=== PATIENT | female | born 1965 | race Native Hawaiian/Other Pacific Islander ===

== ENCOUNTER → 2016-12-24 | Outpatient (CLI) | payer OTHER | END | disposition home or self-care (01) | LOC: LAB.O 12:48 | PROVIDERS: ATTEND Surgery | DX: E34.9 Endocrine disorder, unspecified (principal); R53.83 Other fatigue; G47.00 Insomnia, unspecified; M25.50 Pain in unspecified joint ==

== ENCOUNTER 2017-02-25 21:49 | Emergency (ER) | payer OTHER ==
[2017-02-25 22:12] VITALS: TEMP 98.6
[2017-02-25] MEDS ORDERED: LIDOCAINE 1% W/ EPINEPHRINE 20 ML VIAL INJ ONE (22:16)
[2017-02-25] MEDS ORDERED: CHLORHEXIDINE GLUCONATE 4 % 15 ML UD TOP ONE (22:18)
[2017-02-25] MEDS ORDERED: IODOFORM 1/4 INCH 1 EA BTTL TOP ONE (22:19)
[2017-02-25] MEDS ORDERED: ONDANSETRON ODT 8 MG TAB ONE (22:31)
[2017-02-25] MEDS ORDERED: ONDANSETRON ODT 8 MG TAB SL ONE (22:39)
--- NOTE | 2017-02-25 23:03 | ED.PDOC ---
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 She put the kitten in a box away from all the other animals after she was bitten. The kitten has not had any shots yet as it is only 5 weeks old. Additionally, Patient has had an abscess under her right breast for at least 2 days. She has been taking some Bactrim DS she had left over from previously. It is becoming extremely painful. Timing/Duration: just prior to arrival, other - Abscess for at least 2 days Severity: moderate, severe Location: hands Improving Factors: nothing Worsening Factors: other - pressure Associated Symptoms: other - nausea, anxiety Allergies/Adverse Reactions: Allergies Codeine Allergy (Mild, Verified 02/25/17 22:12) Itching Naproxen Allergy (Mild, Verified 02/25/17 22:12) Penicillins Allergy (Mild, Verified 02/25/17 22:12) Tetanus Toxoid Allergy (Mild, Verified 02/25/17 22:12) Tramadol [From Ultram] Allergy (Mild, Verified 02/25/17 22:12) itching Home Medications: Ambulatory Orders Metoprolol Succinate [Metoprolol Succinate ER] 50 mg PO DAILY 03/17/15 Azithromycin [Zithromax Z-Star] 1 ea PO DAILY #1 pack 10/09/16 Levalbuterol Tartrate [Xopenex Hfa] 45 mcg INH DAILY PRN 10/09/16 Mometasone Furoate (Nasal) [Nasonex] 50 mcg NA DAILY #1 ml 10/09/16 Omeprazole-Sodium Bicarbonate [Zegerid] 1 cap PO DAILY 10/09/16 Trazodone HCl 100 mg PO BEDTIME 10/09/16 Doxycycline Hyclate 100 mg PO BID #14 cap 02/25/17 Review of Systems - Review of Systems Constitutional: States: no symptoms reported. 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 Hx Congestive Heart Failure: No Hx Pacemaker: No Hx Hypertension: No Hx Thyroid Disease: No Hx Diabetes: No Hx Gastroesophageal Reflux: No Hx Renal Disease: No Hx Cancer: No Hx of HIV: No Hx Hepatitis C: No Hx MRSA: No Surgical History: Hysterectomy - Vaccination History Hx Tetanus, Diphtheria Vaccination: - unknown Hx Influenza Vaccination: No Hx Pneumococcal Vaccination: No Immunizations Up to Date: No - Social History Hx Tobacco Use: No Hx Chewing Tobacco Use: No Hx Alcohol Use: No Hx Substance Use: No Hx Substance Use Treatment: No Hx Depression: No Feels Threatened In Home Enviroment: No Feels Threatened In a Relationship: No Hx Physical Abuse: No - Female History Patient : No Family Medical History - Family History Mother Family History: No Known Living Status: Age at (years of age): 57 Hx Family Cancer: Yes Physical Exam - Physical Exam General Appearance: Alert, Anxious, Obvious distress Eyes, Ears, Nose, Throat Exam: normal ENT inspection Neck: supple Extremity: normal range of motion, other - no joint tenderness, however tenderness to palpation over entire thenar eminence of left hand Neurologic: alert, normal mood/affect, oriented x 3 Skin Problem Location: upper extremities, torso Skin Character: abscess, tenderness, other - two puncture wounds on thenar eminence of left hand Lymphatic: no adenopathy Progress - Progress Progress: 02/25/17 23:10 Patient had an adverse reaction the last time she had a tetanus immunization, therefore, she will see her PCP in 1-2 days and discuss this with him. The kitten will be taken to the vet for examination. The authorities were contacted and came to see Patient. Patient will be started on doxycycline 100 mg PO BID x 7 days. - Results/Orders Results/Orders: 02/25/17 02/25/17 21:55 22:07 Temperature 98.6 F Pulse Rate [ 79 monitor] Respiratory 16 16 Rate Blood Pressure 151/79 [Right Arm] O2 Sat by Pulse 97 Oximetry Wound culture pending. Procedures - Incision and Drainage #1 Site: left torso under breast Procedure and Prep: gauze wick placed, irrigated, wound culture collected, pus drained Blade Size: 11 Procedure Comments: Site was cleansed with Hibiclens with sterile water. Area was injected with 3 mL of Lidocaine 1% with epinephrine. An 11 blade was used to make a 1 cm incision in center of abscess. Puss and blood drained from wound. Wound was irrigated with 40 mL sterile NS. Sterile wick inserted and dressings applied. Patient tolerated procedure well other than some nausea which she had even prior to the procedure. Departure - Departure Clinical Impression: Abscess Cat bite of hand Qualifiers: Encounter type: initial encounter Laterality: left Qualified Code(s): S61.452A - Open bite of left hand, initial encounter Time of Disposition: 23:11 Disposition: Discharge to Home or Self Care Condition: Fair Departure Forms: ED Discharge - Pt. Copy, Patient Portal Self Enrollment Instructions: DI for Incision and Drainage of a Skin Abscess, DI for Cat Bite Diet: resume usual diet Referrals: YUVAL SEARS [Primary Care Provider] - 1-2 Weeks Prescriptions: Doxycycline Hyclate 100 mg PO BID #14 cap Home Medications: Ambulatory Orders Metoprolol Succinate [Metoprolol Succinate ER] 50 mg PO DAILY 03/17/15 Azithromycin [Zithromax Z-Star] 1 ea PO DAILY #1 pack 10/09/16 Levalbuterol Tartrate [Xopenex Hfa] 45 mcg INH DAILY PRN 10/09/16 Mometasone Furoate (Nasal) [Nasonex] 50 mcg NA DAILY #1 ml 10/09/16 Omeprazole-Sodium Bicarbonate [Zegerid] 1 cap PO DAILY 10/09/16 Trazodone HCl 100 mg PO BEDTIME 10/09/16 Doxycycline Hyclate 100 mg PO BID #14 cap 02/25/17
[2017-02-25] MEDS ORDERED: DOXYCYCLINE HYCLATE CAP 100 MG CAP PO ONE (23:12)
[2017-02-25 23:35] VITALS: BP 114/70; O2SAT 98
== END 2017-02-25 23:35 | disposition home or self-care (01) ==
LOC: ER 21:49
DX: S61.452A Open bite of left hand, initial encounter (principal); L02.213 Cutaneous abscess of chest wall; I49.9 Cardiac arrhythmia, unspecified; Z79.899 Other long term (current) drug therapy; Z88.0 Allergy status to penicillin; Z88.7 Allergy status to serum and vaccine; Z88.6 Allergy status to analgesic agent; W55.01XA Bitten by cat, initial encounter; Y92.009 Unspecified place in unspecified non-institutional (private) residence as the place of occurrence of the external cause

== ENCOUNTER 2017-12-17 16:30 | Emergency (ER) | payer OTHER ==
[2017-12-17 17:25] VITALS: TEMP 98.1; O2SAT 97
--- NOTE | 2017-12-17 18:12 | ED.PDOC ---
History of Present Illness - General Chief Complaint: Neuro Symptoms/Deficits Stated Complaint: Possible syncopal episode Time Seen by Provider: 12/17/17 17:53 Source: patient Exam Limitations: no limitations - History of Present Illness Initial Comments: SYNCOPE AT WORK. AFTER LUNCH, PT WAS SITTING IN CHAIR IN BREAKROOM. SHE WAS UNAWARE THAT SHE LOST CONSCIOUSNESS FOR SEVERAL MINUTES. 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 SHE DID NOT FALL. AFTERWARD, SHE HAD NUMBNESS AND TINGLING IN EXTREMITIES, LIGHT HEADED, NAUSEOUS FOR SEVERAL MINUTES. NOW SHE IS BACK TO 100% WITH NO DEFICITS. NO H/O SZ. NO MORALES. NO VISION CHANGES. ON THYROID MEDICATION AND HAD LEVELS CHECKED A COUPLE MOS AGO AND WERE WNL. Severity: severe Improving Factors: other - TIME Worsening Factors: nothing Allergies/Adverse Reactions: Allergies Codeine Allergy (Mild, Verified 02/25/17 22:12) Itching Naproxen Allergy (Mild, Verified 02/25/17 22:12) Penicillins Allergy (Mild, Verified 02/25/17 22:12) Tetanus Toxoid Allergy (Mild, Verified 02/25/17 22:12) Tramadol [From Ultram] Allergy (Mild, Verified 02/25/17 22:12) itching Home Medications: Ambulatory Orders Metoprolol Succinate [Metoprolol Succinate ER] 50 mg PO DAILY 03/17/15 Levalbuterol Tartrate [Xopenex Hfa] 45 mcg INH DAILY PRN 10/09/16 Trazodone HCl 100 mg PO BEDTIME 10/09/16 Omeprazole-Sodium Bicarbonate [Zegerid Otc] 1 cap PO DAILY 12/17/17 Review of Systems - Review of Systems Constitutional: States: no symptoms reported EENTM: States: no symptoms reported Respiratory: States: no symptoms reported Cardiology: States: no symptoms reported Gastrointestinal/Abdominal: States: no symptoms reported Genitourinary: States: no symptoms reported Musculoskeletal: States: no symptoms reported Skin: States: no symptoms reported Neurological: States: no symptoms reported Endocrine: States: no symptoms reported Hematologic/Lymphatic: States: no symptoms reported All other Systems: Reviewed and Negative Past Medical History (General) - Patient Medical History Hx Seizures: No Hx Stroke: No Hx Dementia: No Hx Asthma: No Hx of COPD: No 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 Hx Congestive Heart Failure: No Hx Pacemaker: No Hx Hypertension: No Hx Thyroid Disease: Yes Hx Diabetes: No Hx Gastroesophageal Reflux: No Hx Renal Disease: No Hx Cancer: No Hx of HIV: No Hx Hepatitis C: No Hx MRSA: No Surgical History: Hysterectomy, other - Vaccination History Hx Tetanus, Diphtheria Vaccination: - unknown Hx Influenza Vaccination: No Hx Pneumococcal Vaccination: No - Social History Hx Tobacco Use: No Hx Chewing Tobacco Use: No Hx Alcohol Use: No Hx Substance Use: No Hx Substance Use Treatment: No Hx Depression: No Hx Physical Abuse: No - Female History Patient : No Family Medical History - Family History Mother Family History: No Known Living Status: Age at (years of age): 57 Hx Family Cancer: Yes Physical Exam - Physical Exam General Appearance: Alert, No apparent distress Eye Exam: bilateral normal ENT Exam: normal ENT inspection, hearing grossly normal, TMs normal, pharynx normal Neck: non-tender, full range of motion Respiratory: chest non-tender, lungs clear Cardiovascular/Chest: normal peripheral pulses, regular rate, rhythm Peripheral Pulses: radial,right: 2+, radial,left: 2+ Gastrointestinal/Abdominal: normal bowel sounds, non tender Extremities Exam: non-tender, normal range of motion, no evidence of injury Mental Status: alert, oriented x 3 ethanol maintenance mechanic Exam: other - 2-12 IN TACT Coordination/Gait: normal finger to nose, normal gait, negative Romberg's sign Motor/Sensory: no motor deficit, no sensory deficit, no pronator drift DTR: 2+: Patellar, left, Patellar, right Skin Exam: normal color, warm/dry Progress - Results/Orders Results/Orders: SYNCOPE AT REST X 1, TRANSIENT NAUSEA AND PARESTHESIA. ALL RESOLVED. ALL TESTS WNL: CARD ENZYMES, EKG, CT HEAD, CBC, CMP. ORTHOSTATICS NEG. REFERRING TO NEURO FOR POSSIBLE FURTHER W/U SUCH EEG. Departure - Departure Clinical Impression: Syncope, Paresthesia, Nausea Disposition: Discharge to Home or Self Care Condition: Good Departure Forms: ED Discharge - Pt. Copy, Patient Portal Self Enrollment Instructions: DI for Syncope in Adults (Fainting) Diet: resume usual diet Activity: increase activity as tolerated Referrals: YUVAL SEARS [Primary Care Provider] - 1-2 Weeks Home Medications: Ambulatory Orders Metoprolol Succinate [Metoprolol Succinate ER] 50 mg PO DAILY 03/17/15 Levalbuterol Tartrate [Xopenex Hfa] 45 mcg INH DAILY PRN 10/09/16 Trazodone HCl 100 mg PO BEDTIME 10/09/16 Omeprazole-Sodium Bicarbonate [Zegerid Otc] 1 cap PO DAILY 12/17/17 Additional Instructions: Please call the neurologist to make an appointment for further evaluation.
[2017-12-17 18:24] VITALS: BP 130/75
--- NOTE | 2017-12-17 18:36 | CT ---
EXAM DESCRIPTION: Head CLINICAL HISTORY: SYNCOPE COMPARISON: None Available TECHNIQUE: Contiguous axial CT images of the head were obtained. Coronal and sagittal reconstructions were created from the axial data. This exam was performed according to our departmental dose-optimization program, which includes automated exposure control, adjustment of the mA and/or kV according to patient size and/or use of iterative reconstruction technique. FINDINGS: There is no evidence of acute mass, mass effect, midline shift or hemorrhage. The ventricles and extra-axial CSF spaces are unremarkable. The brain parenchyma appears normal for the patient's age. No acute abnormalities of the bones is seen. IMPRESSION: Normal exam. Electronically signed by: Antoine Ruffin 12/17/2017 6:35 PM FITNESS LEADER
== END 2017-12-17 20:01 | disposition home or self-care (01) ==
LOC: ER 16:30
DX: R55 Syncope and collapse (principal); R20.2 Paresthesia of skin; R11.0 Nausea; I49.9 Cardiac arrhythmia, unspecified; E07.9 Disorder of thyroid, unspecified